=== PATIENT | male | born 1995 | race Caucasian/White ===

== ENCOUNTER 2018-04-13 00:04 | Emergency (ER) | payer OTHER ==
[~2018-04-13] VITALS: Ht 182.9 cm; Wt 83.1 kg
[2018-04-13 00:29] VITALS: TEMP 37.3; Ht 182.9 cm; Wt 83.1 kg
--- NOTE | 2018-04-13 00:43 | EMERGENCY ROOM VISIT NOTE ---
History Report prepared by Wily: Ilan Tao Under the Supervision of: Dr. Pao Mcneal D.O. First contact with patient: 00:06 Chief Complaint: MENTAL HEALTH EVALUATION Stated Complaint: MENTAL HEALTH History of Present Illness The patient is a 23 year old male who presents to the Emergency Room via EMS with [place] police for a mental health evaluation. Per EMS the patient called his parents today and they could tell that something was not right. The parents then called [place] police as they were concerned about him. Upon the arrival of police and EMS the patient was exhibiting incoherent thoughts and was showing signs of paranoia. Upon arrival to the ED the patient states that he is here today because "I was being silly" "I was scaring my parents" "I was being crazy." He adds that he is "feeling fine." He admits that he has attempted to hurt himself in the past by burning himself with cigarettes. He has had suicidal ideations in the past, but does not currently. The patient also admits that he smokes and uses psychedelics. The patients mother and father arrived to the ED and note that he has had psychiatric issues for quite sometime. They believe he likely has a history of anxiety, depression, and paranoia. The father states that the patient began to behave irrationally last night and they spent the night with him. They were with him most of the day today and continued to get worse and worse. This afternoon he started to throw things and get very aggressive, this is when they phoned for 911. He was afraid that he was dying and concerned about what is coming for him in his life. The patient walked out of his job on Friday, 2 days ago at [employer] because "everyone was making fun of him." The father believes that this is in his head. The father notes that he has seen a psychiatric professional in the past who prescribed a lot of medications, which "freaked the patient out worse. " When asked why the patient thought he was here he responded "because you are going to kill me." The patient states that he does believe that people are out to get him and are following him. Source of History: patient Onset: Last night Position: head (psych) Quality: other (psych, irrational behavior) Timing: worsening Note: Parents state that the patient was aggressive. Review of Systems See HPI for pertinent positives & negatives. A total of 10 systems reviewed and were otherwise negative. Past Medical & Surgical Denies history of cardiac disease or diabetes. Family History Cancer Diabetes mellitus Hypertension Social History Smoking Status: Current Every Day Smoker Marital Status: single Housing Status: lives with friends Occupation Status: unemployed Current/Historical Medications No Active Prescriptions or Reported Meds Allergies Coded Allergies: No Known Allergies (Unverified , 04/13/18) Physical Exam Vital Signs Date Time Temp Pulse Resp B/P (MAP) Pulse Ox O2 Delivery O2 Flow Rate FiO2 04/13/18 01:31 160/92 04/13/18 00:29 37.3 78 18 175/104 95 Room Air Physical Exam HEENT: Head - normocephalic and atraumatic Pupils are equal, round, and reactive to light. Extraocular eye muscles are intact, and sclera are anicteric. Nose - moist nasal mucosa without discharge. Mouth - moist buccal mucosa. Oropharynx is nonerythematous and there is no tonsillar exudate or edema noted. Neck: Supple; no JVD, nuchal rigidity, cervical lymphadenopathy. Heart: Regular rate and rhythm. There is a normal S1 and S2 with no murmurs, clicks, or gallops appreciated. Lungs: Clear to auscultation bilaterally with no wheezes, rales, or rhonchi. Abdomen: Soft, completely nontender, nondistended, with good bowel sounds. There are no palpable pulsatile masses or hepatosplenomegaly. There is no guarding, rigidity, or rebound noted. Extremities: No evidence of cyanosis, clubbing, or edema. There are easily palpable peripheral pulses. Skin: warm and dry with good turgor and no rashes. There are old dominguez present to the dorsal aspects of both hands and the ventral aspects of the wrists. Psych: Avoids eye contact, appears depressed. Flat affect. Denies suicidal ideation or homicidal at this time. Medical Decision & Procedures Laboratory Results 04/13/18 00:20 04/13/18 00:20 Test 04/13/18 00:20 04/13/18 00:22 Red Blood Count 4.98 M/uL (4.7-6.1) Mean Corpuscular Volume 92.8 fL (80-100) Mean Corpuscular Hemoglobin 33.5 pg (25-34) Mean Corpuscular Hemoglobin Concent 36.1 g/dl (32-36) RDW Standard Deviation 44.1 fL (36.4-46.3) RDW Coefficient of Variation 13.0 % (11.5-14.5) Mean Platelet Volume 10.2 fL (7.4-10.4) Anion Gap 13.0 mmol/L (3-11) Est Creatinine Clear Calc Drug Dose 132.8 ml/min Estimated GFR () 130.2 Estimated GFR (Non- 112.4 BUN/Creatinine Ratio 6.9 (10-20) Calcium Level 9.3 mg/dl (8.5-10.1) Total Bilirubin 0.7 mg/dl (0.2-1) Direct Bilirubin 0.2 mg/dl (0-0.2) Aspartate Amino Transf (AST/SGOT) 21 U/L (15-37) Alanine Aminotransferase (ALT/SGPT) 51 U/L (12-78) Alkaline Phosphatase 84 U/L (45-117) Total Protein 8.4 gm/dl (6.4-8.2) Albumin 4.3 gm/dl (3.4-5.0) Thyroid Stimulating Hormone (TSH) 0.719 uIu/ml (0.300-4.500) Salicylates Level 3.5 mg/dl (2.8-20) Acetaminophen Level < 2 ug/ml (10-30) Ethyl Alcohol mg/dL < 3.0 mg/dl (0-3) Urine Color YELLOW Urine Appearance CLEAR (CLEAR) Urine pH 6.0 (4.5-7.5) Urine Specific [place] 1.016 (1.000-1.030) Urine Protein NEG (NEG) Urine Glucose (UA) NEG (NEG) Urine Ketones 1+ (NEG) Urine Occult Blood TRACE (NEG) Urine Nitrite NEG (NEG) Urine Bilirubin NEG (NEG) Urine Urobilinogen NEG (NEG) Urine Leukocyte Esterase TRACE (NEG) Urine WBC (Auto) 1-5 /hpf (0-5) Urine RBC (Auto) 0-4 /hpf (0-4) Urine Hyaline Casts (Auto) 1-5 /lpf (0-5) Urine Epithelial Cells (Auto) 10-20 /lpf (0-5) Urine Bacteria (Auto) NEG (NEG) Urine Opiates Screen NEG (NEG) Urine Methadone, Qualitative NEG (NEG) Urine Barbiturates NEG (NEG) Urine Phencyclidine (PCP) Level NEG (NEG) Ur Amphetamine/Methamphetamine NEG (NEG) MDMA (Ecstasy) Screen NEG (NEG) Urine Benzodiazepines Screen NEG (NEG) Urine Cocaine Metabolite NEG (NEG) Urine Marijuana (THC) POS (NEG) Laboratory results per my review. Medications Administered Medications (Trade) Dose Ordered Sig/Philomena Route Start Time Stop Time Status Last Admin Dose Admin Lorazepam (Ativan Tab) 1 mg NOW STAT SL 04/13/18 02:23 04/13/18 02:24 DC 04/13/18 03:01 1 MG Procedure Medications Ordered Ativan 1 mg SL. ED Course 0004: Past medical records reviewed. The patient was evaluated in room A6. A complete history and physical exam was performed. Laboratory studies were drawn as above. 0220: I checked on the patient at this time. He admits to feeling anxious. The patient is medically cleared at this time will be evaluated by Staff from [facility]. 0223: Ordered Lorazepam 1 mg SL. 0239: The psychiatric child support case officer has sent the patient's information to [facility]. Awaiting bed search/placement. 0417: I checked on the patient he is sound asleep. 0532: [facility] has declined the patient and the bed search has been suspended. The patient remains in the department. He will be signed out to Dr. Ron at change of shift. 0630: The patient will be signed out to Dr. Mascorro Medical Decision The patient is a 23 year old male who presents to the Emergency Department for a mental health evaluation. Differential diagnosis includes; drug abuse, mood disorder, thought disorder, paranoia, schizophrenia. Laboratory studies were reviewed and show; WBC of 11.9, stable hemoglobin and hematocrit, normal TSH, normal renal function, normal LFTs, glucose is 127. The toxicology screen is positive for marijuana, negative for alcohol, negative for Tylenol, the Salicylate level was 3.4. Urinalysis was reviewed and shows; 1+ ketones, trace blood, and trace leukocyte esterase. 10-20 epithelial cells. This is a 23-year-old male patient presents to the emergency department with his parents for psychiatric evaluation. The parents are concerned as the patient has become increasingly paranoid. He does admit to using mushrooms. However, he has not used any in a couple of days. He does answer questions very briefly but states that he does need psychiatric evaluation. He does believe that people are following him and he seems paranoid. He is willing to admit himself voluntarily for inpatient psychiatric care. Medication Reconcilliation Current Medication List: was personally reviewed by me Blood Pressure Screening Patient's blood pressure: Elevated blood pressure Impression Primary Impression: Thought disorder Scribe Attestation The scribe's documentation has been prepared under my direction and personally reviewed by me in its entirety. I confirm that the note above accurately reflects all work, treatment, procedures, and medical decision making performed by me. Departure Information Dispostion Still a Patient (Signed out a COS to Dr. Ron) Prescriptions No Active Prescriptions or Reported Meds Referrals No Doctor, Assigned (PCP) Patient Instructions My [facility]
[2018-04-13 00:48] LABS: HEMATOCRIT 46.2 % (42-52); HEMOGLOBIN 16.7 g/dL (14.0-18.0); MEAN CELL VOLUME 92.8 fL (80-100); MEAN CORPUSCULAR HEMOGLOBIN 33.5 pg (25-34); MEAN CORPUSCULAR HGB CONC 36.1 g/dl (32-36); MEAN PLATELET VOLUME 10.2 fL (7.4-10.4); PLATELET COUNT 237 K/uL (130-400); RED CELL DISTRIBUTION WIDTH SD 44.1 fL (36.4-46.3); WHITE BLOOD COUNT 11.92 K/uL (4.8-10.8)
[2018-04-13 01:17] LABS: ALBUMIN 4.3 gm/dl (3.4-5.0); CALCIUM 9.3 mg/dl (8.5-10.1); CREATININE 0.95 mg/dl (0.60-1.40); POTASSIUM 3.2 mmol/L (3.5-5.1); TOTAL PROTEIN 8.4 gm/dl (6.4-8.2)
[2018-04-13] MEDS ORDERED: LORAZEPAM 1 MG TAB SL STA (02:23)
--- NOTE | 2018-04-13 12:20 | EMERGENCY ROOM VISIT NOTE ---
ED Visit Note The patient was signed out to me awaiting mental health evaluation. After mental health evaluated the patient, the patient was felt to be stable for discharge. Appointments were made for [facility].
[2018-04-13 12:25] VITALS: BP 132/83; PULSE 65; O2SAT 97
== END 2018-04-13 12:25 | disposition home or self-care (01) ==
LOC: EDBD 00:04 → C.EDA 00:05
DX: F99 Mental disorder, not otherwise specified (principal); F17.200 Nicotine dependence, unspecified, uncomplicated; Z91.5 Personal history of self-harm